=== PATIENT | male | born 1955 | race Caucasian/White ===

== ENCOUNTER 2021-11-05 18:51 | Inpatient (IN) | payer OTHER, MEDICARE ==
[~2021-11-05] VITALS: Ht 180.3 cm; Wt 109.0 kg
[~2021-11-05 18:51] MED LIST: ALLO100T PO; ASPI-1265 PO; GLIP-127 PO; IBUP-1984 PO; METF500T PO
[2021-11-05] MEDS ORDERED: morphine 4 MG/ML inj SYRINge IM ONE (19:35)
[2021-11-05] MEDS ORDERED: ondansetron/PF 4mg/2ml inj IV ONE (19:35)
[2021-11-05 19:59] LABS: D-DIMER 0.27 MG/L FEU (0-0.50)
[2021-11-05 20:03] LABS: ALANINE AMINOTRANSFERASE 42 U/L (12-78); ALBUMIN 3.6 G/DL (3.4-5.0); ALKALINE PHOSPHATASE 56 IU/L (46-116); ANION GAP 10 (8-16); ASPARTATE AMINO TRANSFERASE 23 U/L (10-37); BILIRUBIN,TOTAL 0.5 MG/DL (0.1-1.0); BLOOD UREA NITROGEN 13 MG/DL (7-18); BUN/CREATININE RATIO 11.5 (5.4-32.0); CALCIUM 9.4 MG/DL (8.5-10.1); CHLORIDE 102 MMOL/L (99-107); CREATININE 1.13 MG/DL (0.60-1.10); GLUCOSE 271 MG/DL (70-104); POTASSIUM 3.7 MMOL/L (3.5-5.1); SODIUM 138 MMOL/L (135-145); TOTAL CARBON DIOXIDE 26.4 MMOL/L (24-32); TOTAL PROTEIN 7.3 G/DL (6.4-8.2); eGFR 65 ML/MIN
[2021-11-05 20:04] LABS: BASOPHILS % (AUTO) 0.8 % (0-1); EOSINOPHILS # (AUTO) 0.3 X10'3 (0-0.9); EOSINOPHILS % (AUTO) 4.5 % (0-6); HEMATOCRIT 42.1 % (42.0-52.0); HEMOGLOBIN 14.4 g/dl (14.0-17.9); LYMPHOCYTES # (AUTO) 1.8 X10'3 (1.1-4.8); LYMPHOCYTES % (AUTO) 30.2 % (21-51); MEAN CORPUSCULAR HEMOGLOBIN 32.9 PG (27.0-31.0); MEAN CORPUSCULAR HGB CONC 34.1 g/dL (33.0-36.5); MEAN CORPUSCULAR VOLUME 96.6 FL (78-98); MEAN PLATELET VOLUME 8.6 FL (7.4-10.4); MONOCYTES # (AUTO) 0.5 X10'3 (0-0.9); NEUTROPHILS # (AUTO) 3.2 X10'3 (1.8-7.7); NEUTROPHILS % (AUTO) 55.5 % (42-75); PLATELET COUNT 208 X10'3 (140-440); RED BLOOD COUNT 4.36 X10'6 (4.70-6.10); RED CELL DISTRIBUTION WIDTH 12.5 % (11.5-14.5); WHITE BLOOD COUNT 5.8 X10'3 (4.5-11.0)
[2021-11-05] MEDS ORDERED: LANTUS SQ (21:53)
[2021-11-05] MEDS ORDERED: LOSA50TA64 PO (21:53)
[2021-11-05] MEDS ORDERED: morphine 4 MG/ML inj SYRINge IV ONE (23:25)
[2021-11-06] VITALS (14 sets, daily range): BP systolic 126–156; BP diastolic 65–93
[2021-11-06] MEDS ORDERED: diphenhydrAMINE 50 mg/ml inj IV PRN (01:05)
[2021-11-06] MEDS ORDERED: HYDROcodone/acetaminophen 5mg/325mg tablet PO PRN (01:05)
[2021-11-06] MEDS ORDERED: ondansetron/PF 4mg/2ml inj IV PRN (01:05)
[2021-11-06] MEDS ORDERED: diphenhydrAMINE 25mg capsule PO PRN (01:05)
[2021-11-06] MEDS ORDERED: mag hydrox/Alum hydrox/simeth 30ml oral suspension PO PRN (01:05)
[2021-11-06] MEDS ORDERED: morphine 2 MG/ML inj. syringe IV PRN ×2 (01:05)
[2021-11-06] MEDS ORDERED: magnesium hydroxide 30ml (MOM) UD suspension PO PRN (01:05)
[2021-11-06] MEDS ORDERED: bisacodyl 10mg suppository rectal RC PRN (01:05)
[2021-11-06] MEDS ORDERED: ondansetron 4mg rapidly disintigrating tab PO PRN (01:05)
[2021-11-06] MEDS ORDERED: acetaminophen 650mg rectal suppository RC PRN (01:05)
[2021-11-06] MEDS ORDERED: acetaminophen 325mg tablet PO PRN ×2 (01:05)
[2021-11-06] MEDS ORDERED: MESSAGE TO PHARMACY PO ONE (01:10)
[2021-11-06] MEDS ORDERED: DEXTROSE 15 GM of carb/4 tabs (each vial/BOTTLE has 4 tablets) PO PRN ×2 (01:10)
[2021-11-06] MEDS ORDERED: insulin Lispro (HumaLOG) vial - multi-dose SQ SCH (01:10)
[2021-11-06] MEDS ORDERED: glucagon, human recombinant 1mg kit SUBCUT PRN (01:10)
[2021-11-06] MEDS ORDERED: dextrose 50%-water 50ml dispensing syringe IV PRN ×2 (01:10)
[2021-11-06] MEDS ORDERED: metoprolol tartrate 1mg/ml inj IV PRN (01:15)
[2021-11-06] MEDS ORDERED: regadenoson 0.4mg/5ml syringe IV PRN (01:15)
[2021-11-06] MEDS ORDERED: aminophylline 500mg/20ml vial IV PRN (01:15)
[2021-11-06] MEDS ORDERED: nitroGLYCERIN 0.4mg SUBLingual tab SL PRN (01:15)
[2021-11-06] MEDS: normal saline 1000ml 1,000 ML IV SCH ×2 (01:21→11:05)
[2021-11-06] MEDS ORDERED: pantoprazole 40mg Tablet.DR PO SCH (07:30)
[2021-11-06] MEDS: allopurinol 100mg tablet PO SCH (07:51)
[2021-11-06] MEDS: docusate sod 100mg capsule PO SCH ×2 (07:51→20:00)
[2021-11-06] MEDS: losartan 50mg tablet PO SCH (07:51)
[2021-11-06] MEDS: atorvastatin 20mg tablet PO SCH (07:52)
[2021-11-06] MEDS: pantoprazole 40mg Tablet.DR PO SCH (07:52)
[2021-11-06] MEDS: heparin, porcine 5000 units/ml vial SQ SCH ×3 (07:53→21:00)
[2021-11-06 07:55] LABS: APTT 27 SECONDS (22-32)
[2021-11-06] MEDS ORDERED: nitroGLYCERIN 0.2mg/hour patch TD SCH (08:00)
[2021-11-06 08:18] LABS: CREATINE KINASE 72 U/L (39-308); LIPASE 80 U/L (73-393); MAGNESIUM 1.5 MG/DL (1.5-2.4); PHOSPHORUS 4.3 MG/DL (2.3-4.5)
[2021-11-06] MEDS: aspirin 81mg tab.chew PO SCH (08:39)
--- NOTE | 2021-11-06 08:40 | NUR ---
Nitro patch held due to pt going to have stress test.
--- NOTE | 2021-11-06 08:41 | NUR ---
pt to nuc med on monitor with RN, pt able to transfer self with min assist from gurney to wheelchair, pt c/o dizziness
[2021-11-06] MEDS ORDERED: aminophylline inj. 0 ML IV ONE (09:02)
[2021-11-06 11:17] LABS: HEMOGLOBIN A1C 8.1 % (4.5-6.2)
--- NOTE | 2021-11-06 17:28 | NUR ---
Report called to NATA Thomas. Patient admitting to [facility] [id number]. All questions answered.
--- NOTE | 2021-11-06 18:00 | NUR ---
received patient to room 4014A in [facility] accompanied by x2 Rn and at bedside. Patient transferred from [facility] to bed with slide board. Patient alert and oriented with c/o 4/10 left chest pain that does not radiate anywhere. Patient denies SOB. VSS. Oriented patient to room and call light. Call light placed within reach. Bed low and locked. 2 RN skin assessment completed. No skin issues noted.
--- NOTE | 2021-11-06 18:22 | NUR ---
Problems reprioritized. Patient report given, questions answered & plan of care reviewed with NATA Aragon.
[2021-11-06] MEDS ORDERED: insulin glargine (Lantus) pen - multi-dose SQ SCH (21:00)
[2021-11-06] MEDS ORDERED: temazepam 15mg capsule PO PRN (21:00)
[2021-11-07] MEDS: HYDROcodone/acetaminophen 10/325mg tab PO PRN ×2 (01:00→11:26)
[2021-11-07 02:00] VITALS: BP 145/82
[2021-11-07] MEDS: normal saline 1000ml 1,000 ML IV SCH (02:05)
[2021-11-07 07:15] LABS: BASOPHILS % (AUTO) 0.7 % (0-1); EOSINOPHILS # (AUTO) 0.3 X10'3 (0-0.9); EOSINOPHILS % (AUTO) 4.8 % (0-6); HEMATOCRIT 39.6 % (42.0-52.0); HEMOGLOBIN 13.4 g/dl (14.0-17.9); LYMPHOCYTES # (AUTO) 1.7 X10'3 (1.1-4.8); LYMPHOCYTES % (AUTO) 27.7 % (21-51); MEAN CORPUSCULAR HEMOGLOBIN 32.6 PG (27.0-31.0); MEAN CORPUSCULAR HGB CONC 33.8 g/dL (33.0-36.5); MEAN CORPUSCULAR VOLUME 96.3 FL (78-98); MEAN PLATELET VOLUME 8.9 FL (7.4-10.4); MONOCYTES # (AUTO) 0.6 X10'3 (0-0.9); MONOCYTES % (AUTO) 10.3 % (2-12); NEUTROPHILS # (AUTO) 3.4 X10'3 (1.8-7.7); NEUTROPHILS % (AUTO) 56.5 % (42-75); PLATELET COUNT 193 X10'3 (140-440); RED BLOOD COUNT 4.12 X10'6 (4.70-6.10); RED CELL DISTRIBUTION WIDTH 13.1 % (11.5-14.5); WHITE BLOOD COUNT 6.1 X10'3 (4.5-11.0)
[2021-11-07 07:43] LABS: ALANINE AMINOTRANSFERASE 41 U/L (12-78); ALBUMIN 3.1 G/DL (3.4-5.0); ALKALINE PHOSPHATASE 47 IU/L (46-116); ANION GAP 9 (8-16); ASPARTATE AMINO TRANSFERASE 31 U/L (10-37); BLOOD UREA NITROGEN 12 MG/DL (7-18); BUN/CREATININE RATIO 13.6 (5.4-32.0); CALCIUM 8.4 MG/DL (8.5-10.1); CHLORIDE 105 MMOL/L (99-107); CREATININE 0.88 MG/DL (0.60-1.10); GLUCOSE 132 MG/DL (70-104); POTASSIUM 3.8 MMOL/L (3.5-5.1); SODIUM 139 MMOL/L (135-145); TOTAL CARBON DIOXIDE 24.9 MMOL/L (24-32); TOTAL PROTEIN 6.2 G/DL (6.4-8.2); eGFR 87 ML/MIN
[2021-11-07] MEDS ORDERED: PERFLUTREN PROTEIN-A MICROSPHR (Optison) 0.22 MG/ML 3ML VIAL IV ONE (07:55)
[2021-11-07] MEDS: allopurinol 100mg tablet PO SCH (08:50)
[2021-11-07] MEDS: atorvastatin 20mg tablet PO SCH (08:50)
[2021-11-07] MEDS: aspirin 81mg tab.chew PO SCH (08:50)
[2021-11-07] MEDS: docusate sod 100mg capsule PO SCH (08:51)
[2021-11-07] MEDS: heparin, porcine 5000 units/ml vial SQ SCH (08:51)
[2021-11-07] MEDS: losartan 50mg tablet PO SCH (08:52)
[2021-11-07] MEDS: pantoprazole 40mg Tablet.DR PO SCH (09:01)
--- NOTE | 2021-11-07 11:26 | NUR ---
DM consult: Per EMR pt with T2DM, current A1c 8.1%. Pt seen at bedside with SO present for written and verbal DM education. Pt states he previously was seeing a physician q 3 months however they are now out of business so he's pending seeing a new physician. Pt states he takes his DM medications per rx without issues and checks his BG levels twice a day with resulting numbers 114-140 mg/dL in the morning and 250-300 mg/dL after dinner in the evening. RD reviewed consistent CHO intake and snack options as pt reports sometimes feeling hungry after dinner though doesn't eat d/t his blood sugars. Pt reports limiting bread, starch, and sugar intake to assist with DM management. All of patient's questions were answered at this time. RD contact information provided and pt encouraged to reach out if needed. Pt endorses a good appetite and states he is getting full from meals. Pt denies food allergies though reports disliking mayonnaise, ketchup, mustard, tomatoes, pickles, and salad dressing, d/w dietary. Pt denies difficulty chewing/swallowing or constipation/diarrhea. Will continue to follow. Addendum: 11/07/21 at [address] Amended: Links added.
--- NOTE | 2021-11-07 14:28 | NUR ---
Reviewed discharge instruction with patient, when to return to the ED, medications, follow up appointments, and educational information of dx. Pt stated that he had no questions or concerns at this time. IV removed, tele box returned to tech. Pt left the facility via wheelchair to private vehicle with belongings.
== END 2021-11-07 14:50 | disposition home or self-care (01) | DRG 313 ==
LOC: ER 18:51 → ED HOLD 11-06 01:08 → PCU 3S 11-06 17:47
PROVIDERS: ADMIT Family Medicine; ATTEND Family Medicine
PROC: 4A02XM4 Measurement of Cardiac Total Activity, External Approach (ICD-10-PCS; principal; 2021-11-06)
PROC: 3E033HZ Introduction of Radioactive Substance into Peripheral Vein, Percutaneous Approach (ICD-10-PCS; 2021-11-06)
PROC: 5A09357 Assistance with Respiratory Ventilation, Less than 24 Consecutive Hours, Continuous Positive Airway Pressure (ICD-10-PCS; 2021-11-07)
DX: R07.2 Precordial pain (principal); I13.0 Hypertensive heart and chronic kidney disease with heart failure and stage 1 through stage 4 chronic kidney disease, or unspecified chronic kidney disease; I50.32 Chronic diastolic (congestive) heart failure; E11.22 Type 2 diabetes mellitus with diabetic chronic kidney disease; Z20.822 Contact with and (suspected) exposure to COVID-19; E11.65 Type 2 diabetes mellitus with hyperglycemia; E78.00 Pure hypercholesterolemia, unspecified; G47.33 Obstructive sleep apnea (adult) (pediatric); M10.9 Gout, unspecified; N18.9 Chronic kidney disease, unspecified; Z87.442 Personal history of urinary calculi; Z88.8 Allergy status to other drugs, medicaments and biological substances; Z79.899 Other long term (current) drug therapy; Z79.4 Long term (current) use of insulin; Z79.82 Long term (current) use of aspirin
CPT/HCPCS: 36415; 70551; 71045; 78452; 80053; 82550; 82948; 83036; 83690; 83735; 83880; 84100; 84443; 84484; 85025; 85379; 85610; 85730; 87635; 93005; 93017; 93306; 93880; 96372; 96374; 99285; A9500; C9803; G0378; J0280; J1644; J1815; J2270; J2405; J2785; J7030